=== PATIENT | male | born 1970 | race Caucasian/White ===

== ENCOUNTER 2019-04-14 18:46 | Emergency (ER) | payer SELFPAY ==
[~2019-04-14] VITALS: Ht 172.7 cm; Wt 70.3 kg
[2019-04-14] MEDS ORDERED: IV RINGERS SOLUTION,LACTATED 1,000 ML IV SCH ×2 (18:54→20:15)
--- NOTE | 2019-04-14 19:05 | ED.ADGEN ---
Past History Past Medical History: Seizure Adult General Chief Complaint Chief Complaint - Pt. PD referral for mental status change and intoxication.- Seen stumbling down [address]- Verbal responsive to yes and no questions, No pain complaints- Past Hx. per Paramedics for ETOH abuse HPI HPI Patient is a 48 year old male who presents with above hx and complaints of mental status change. Appears to have had a seizure- small bite corrine on tongue and urinated on himself. Patient appears post ictal. Patient had a strong smell of alcohol. Patient denies any trauma. Patient denies any head injury. Patient does answer questions with yes and no. Patient is somewhat discoordinated a poor historian. Patient does have findings consistent with sunburn. Patient will move all extremities on request. Patient is able to move himself from, to x-ray table in x-ray table, without problem. Patient denies other drug usage. He advised he only likes to drink alcohol. Patient does smoke. Review of Systems Review of Systems Constitutional: Denies fever or chills [] Eyes: Denies change in visual acuity, redness, or eye pain [] HENT: Denies nasal congestion or sore throat [] Respiratory: Denies cough or shortness of breath [] Cardiovascular: No additional information not addressed in HPI [] GI: Denies abdominal pain, nausea, vomiting, bloody stools or diarrhea [] : Denies dysuria or hematuria [] Musculoskeletal: Denies back pain or joint pain [] Integument: Denies rash or skin lesions []Sun burn Neurologic: Denies headache, focal weakness or sensory changes [] Endocrine: Denies polyuria or polydipsia [] All other systems were reviewed and found to be within normal limits, except as documented in this note. Family History Family History Not currently available Current Medications Current Medications Current Medications Medications (Trade) Dose Ordered Sig/Amy Start Time Stop Time Status Last Admin Dose Admin Aspirin (Children'S Aspirin) 81 mg 1X ONCE 04/14/19 19:15 04/14/19 19:16 DC 04/14/19 19:16 81 MG Enoxaparin Sodium (Lovenox 80mg Syringe) 80 mg BID 04/14/19 21:00 04/14/19 23:30 DC Folic Acid (FOLIC ACID SYRINGE for ER) 5 mg STK-MED ONCE 5/14/19 19:12 04/14/19 19:13 DC Iohexol (Omnipaque 350 Mg/ml) 100 ml 1X ONCE 04/14/19 20:45 04/14/19 20:46 DC Lactated Ringer's 1,000 ml @ 160 mls/hr Q6H15M 04/14/19 20:15 04/14/19 23:30 DC Lorazepam (Ativan) 2 mg 1X PRN PRN 04/14/19 20:15 04/14/19 23:30 DC Multivitamins/ Minerals 10 ml/ Folic Acid 1 mg/ Thiamine HCl 100 mg/Lactated Ringer's 1,011.2 ml @ 1,011.2 mls/hr DAILY 04/15/19 09:00 04/15/19 09:00 DC Ondansetron HCl (Zofran) 4 mg PRN Q4HRS PRN 04/14/19 20:15 04/14/19 23:30 DC Thiamine HCl (Thiamine Vial) 200 mg STK-MED ONCE 04/14/19 19:12 04/14/19 19:13 DC Allergies Allergies Allergies Coded Allergies Type Severity Reaction Last Updated Verified No Known Drug Allergies 04/14/19 No Physical Exam Physical Exam Constitutional: no acute distress, very intoxicated in appearance. [] HENT: Normocephalic, bite corrine on tongue, bilateral external ears normal, oropharynx moist, no oral exudates, nose normal. Sunburn to face Eyes: PERRLA, EOMI, conjunctiva normal, no discharge. [] Neck: Normal range of motion, no tenderness, supple, no stridor. [] Cardiovascular:Heart rate regular rhythm, no murmur [] Lungs & Thorax: Bilateral breath sounds equal apex with few scattered wheezes auscultation [] Abdomen: Bowel sounds normal, soft, no tenderness, no masses, no pulsatile masses. []Urinary incontinence Skin: Warm, dry, no erythema, no rash. [] Does have findings of bony points ecchymosis from old falls. Back: No tenderness, no CVA tenderness. [] Extremities: No tenderness, no cyanosis, no clubbing, ROM intact, no edema. [] Moves all extremities on request. Neurologic: Alert and oriented X 3, patient is ambulatory, has distal sensory fu nction, dis coordinated on finger to nose. [employer]s [employer] Footballs Reverser equal. DTRs +2 patella and brachial. Patient has somewhat wide gait. No cording in legs. Psychologic: Affect is up-to-date, judgement impaired,, mood normal. []Patient eventually sensorium improved. Was able to walk without dis coordination. Demanding discharge. Patient denies suicidal ideation. Patient denies any homicidal ideation. Patient denies any hallucinations. Patient denies previous surgeries or history or alcohol withdrawal seizures. Patient continued to refuse admission. Current Patient Data Lab Results Laboratory Tests Test 04/14/19 19:00 04/14/19 19:19 04/14/19 21:20 White Blood Count 8.8 x10^3/uL (4.0-11.0) Red Blood Count 4.32 x10^6/uL (4.30-5.70) Hemoglobin 14.2 g/dL (13.0-17.5) Hematocrit 42.7 % (39.0-53.0) Mean Corpuscular Volume 99 fL (79-100) Mean Corpuscular Hemoglobin 33 pg (25-35) Mean Corpuscular Hemoglobin Concent 33 g/dL (31-37) Red Cell Distribution Width 13.6 % (11.5-14.5) Platelet Count 273 x10^3/uL (140-400) Neutrophils (%) (Auto) 59 % (31-73) Lymphocytes (%) (Auto) 29 % (24-48) Monocytes (%) (Auto) 9 % (0-9) Eosinophils (%) (Auto) 2 % (0-3) Basophils (%) (Auto) 1 % (0-3) Neutrophils # (Auto) 5.1 x10^3uL (1.8-7.7) Lymphocytes # (Auto) 2.5 x10^3/uL (1.0-4.8) Monocytes # (Auto) 0.8 x10^3/uL (0.0-1.1) Eosinophils # (Auto) 0.2 x10^3/uL (0.0-0.7) Basophils # (Auto) 0.1 x10^3/uL (0.0-0.2) Erythrocyte Sedimentation Rate 22 (0-15) H Prothrombin Time 10.2 SEC (9.4-11.4) Prothrombin Time INR 1.0 (0.9-1.1) PTT 24 SEC (23-33) D-Dimer (Apurva) 0.94 mg/L (0.00-0.50) H Sodium Level 141 mmol/L (136-145) Potassium Level 3.8 mmol/L (3.5-5.1) Chloride Level 106 mmol/L (98-107) Carbon Dioxide Level 21 mmol/L (21-32) Anion Gap 14 (6-14) Blood Urea Nitrogen 10 mg/dL (8-26) Creatinine 1.3 mg/dL (0.7-1.3) Estimated GFR (Cockcroft-Gault) 58.4 Glucose Level 91 mg/dL (70-99) Calcium Level 8.9 mg/dL (8.5-10.1) Magnesium Level 2.1 mg/dL (1.8-2.4) Total Bilirubin 0.2 mg/dL (0.2-1.0) Direct Bilirubin 0.1 mg/dL (0.0-0.2) Aspartate Amino Transferase (AST) 35 U/L (15-37) Alanine Aminotransferase (ALT) 29 U/L (16-63) Alkaline Phosphatase 70 U/L (46-116) Creatine Kinase 78 U/L (39-308) Troponin I Quantitative < 0.017 ng/mL (0-0.055) [id number]-Type Natriuretic Peptide 27 pg/mL (0-124) Total Protein 7.8 g/dL (6.4-8.2) Albumin 3.5 g/dL (3.4-5.0) Lipase 174 U/L (73-393) Ethyl Alcohol Level 284 mg/dL (0-10) H 225 mg/dL (0-10) H Glucose (Fingerstick) 93 mg/dL (70-99) Urine Collection Type Unknown Urine Color Straw Urine Clarity Clear Urine pH 5.5 Urine Specific [place] <=1.005 Urine Protein Neg (NEG-TRACE) Urine Glucose (UA) Neg mg/dL (NEG) Urine Ketones (Stick) Neg mg/dL (NEG) Urine Blood Small (NEG) Urine Nitrite Neg (NEG) Urine Bilirubin Neg (NEG) Urine Urobilinogen Dipstick 0.2 mg/dL (0.2 mg/dL) Urine Leukocyte Esterase Neg (NEG) Urine RBC 0 /HPF (0-2) Urine WBC 0 /HPF (0-4) Urine Squamous Epithelial Cells Occ /LPF Urine Bacteria 0 /HPF (0-FEW) Urine Opiates Screen Neg (NEG) Urine Methadone Screen Neg (NEG) Urine Barbiturates Neg (NEG) Urine Phencyclidine Screen Neg (NEG) Urine Amphetamine/Methamphetamine Neg (NEG) Urine Benzodiazepines Screen Neg (NEG) Urine Cocaine Screen Neg (NEG) Urine Cannabinoids Screen Neg (NEG) Urine Ethyl Alcohol Pos (NEG) EKG EKG My interpretation of EKG shows a sinus rhythm at 81 bpm. Left axis. No findings acute STEMI of contralateral changes.[] Radiology/Procedures Radiology/Procedures My interpretation chest x-ray shows no acute cardiopulmonary findings. My interpretation of CT head shows atrophy. No shift, mass, edema, bleed, or fracture. See formal report when available. My interpretation CT of neck shows degenerative joint changes. But no obvious fracture dislocation. Possible vascular AV M at T-1 or T2? See formal report when available. . Patient refuses CT angio of chest.[] Course & Med Decision Making Course & Med Decision Making Pertinent Labs and Imaging studies reviewed. (See chart for details). Encourage patient to not drink to excess. Patient follow-up primary care. Patient consider alcohol rehabilitation. Pt. currently refusing referral. Pt. currently refusing admission. Pt. refusing CT chest. Pt. insistent on discharge in spite of risks. Seizure precautions given. . Begged patient to remain in hospital get adequate hydration. Monitor for further seizures. Pt. refuses admission and further evaluation. Pt. did pull out his IV and dress himself. Stated he would not be admitted or consider a rehab program. Pt. refused to complete CT chest. Recommend pt. to take a daily MV. Pt. encourage to return at any time. [] Final Impression Final Impression 1. Mental Status Change- 2.Suspect Seizure 3. ETOH Abuse 4. Tobacco Use 5. Elevated D-dimer 0.94[] 6. Hemangioma at T2- 2 centimeters Dragon Disclaimer Dragon Disclaimer This electronic medical record was generated, in whole or in part, using a voice recognition dictation system. Discharge Summary Visit Information Final Diagnosis Problems Medical Problems: (1) Alcohol abuse Status: Acute (2) Mental status alteration Status: Acute Brief Hospital Course Allergies Allergies Coded Allergies Type Severity Reaction Last Updated Verified No Known Drug Allergies 04/14/19 No Lab Results Laboratory Tests Test 04/14/19 19:00 04/14/19 19:19 04/14/19 21:20 White Blood Count 8.8 x10^3/uL (4.0-11.0) Red Blood Count 4.32 x10^6/uL (4.30-5.70) Hemoglobin 14.2 g/dL (13.0-17.5) Hematocrit 42.7 % (39.0-53.0) Mean Corpuscular Volume 99 fL (79-100) Mean Corpuscular Hemoglobin 33 pg (25-35) Mean Corpuscular Hemoglobin Concent 33 g/dL (31-37) Red Cell Distribution Width 13.6 % (11.5-14.5) Platelet Count 273 x10^3/uL (140-400) Neutrophils (%) (Auto) 59 % (31-73) Lymphocytes (%) (Auto) 29 % (24-48) Monocytes (%) (Auto) 9 % (0-9) Eosinophils (%) (Auto) 2 % (0-3) Basophils (%) (Auto) 1 % (0-3) Neutrophils # (Auto) 5.1 x10^3uL (1.8-7.7) Lymphocytes # (Auto) 2.5 x10^3/uL (1.0-4.8) Monocytes # (Auto) 0.8 x10^3/uL (0.0-1.1) Eosinophils # (Auto) 0.2 x10^3/uL (0.0-0.7) Basophils # (Auto) 0.1 x10^3/uL (0.0-0.2) Erythrocyte Sedimentation Rate 22 (0-15) Prothrombin Time 10.2 SEC (9.4-11.4) Prothromb Time International Ratio 1.0 (0.9-1.1) Activated Partial Thromboplast Time 24 SEC (23-33) D-Dimer (Apurva) 0.94 mg/L (0.00-0.50) Sodium Level 141 mmol/L (136-145) Potassium Level 3.8 mmol/L (3.5-5.1) Chloride Level 106 mmol/L (98-107) Carbon Dioxide Level 21 mmol/L (21-32) Anion Gap 14 (6-14) Blood Urea Nitrogen 10 mg/dL (8-26) Creatinine 1.3 mg/dL (0.7-1.3) Estimated GFR (Cockcroft-Gault) 58.4 Glucose Level 91 mg/dL (70-99) Calcium Level 8.9 mg/dL (8.5-10.1) Magnesium Level 2.1 mg/dL (1.8-2.4) Total Bilirubin 0.2 mg/dL (0.2-1.0) Direct Bilirubin 0.1 mg/dL (0.0-0.2) Aspartate Amino Transf (AST/SGOT) 35 U/L (15-37) Alanine Aminotransferase (ALT/SGPT) 29 U/L (16-63) Alkaline Phosphatase 70 U/L (46-116) Creatine Kinase 78 U/L (39-308) Troponin I Quantitative < 0.017 ng/mL (0-0.055) [id number]-Type Natriuretic Peptide 27 pg/mL (0-124) Total Protein 7.8 g/dL (6.4-8.2) Albumin 3.5 g/dL (3.4-5.0) Lipase 174 U/L (73-393) Ethyl Alcohol Level 284 mg/dL (0-10) 225 mg/dL (0-10) Glucose (Fingerstick) 93 mg/dL (70-99) Urine Collection Type Unknown Urine Color Straw Urine Clarity Clear Urine pH 5.5 Urine Specific [place] <=1.005 Urine Protein Neg (NEG-TRACE) Urine Glucose (UA) Neg mg/dL (NEG) Urine Ketones (Stick) Neg mg/dL (NEG) Urine Blood Small (NEG) Urine Nitrite Neg (NEG) Urine Bilirubin Neg (NEG) Urine Urobilinogen Dipstick 0.2 mg/dL (0.2 mg/dL) Urine Leukocyte Esterase Neg (NEG) Urine RBC 0 /HPF (0-2) Urine WBC 0 /HPF (0-4) Urine Squamous Epithelial Cells Occ /LPF Urine Bacteria 0 /HPF (0-FEW) Urine Opiates Screen Neg (NEG) Urine Methadone Screen Neg (NEG) Urine Barbiturates Neg (NEG) Urine Phencyclidine Screen Neg (NEG) Urine Amphetamine/Methamphetamine Neg (NEG) Urine Benzodiazepines Screen Neg (NEG) Urine Cocaine Screen Neg (NEG) Urine Cannabinoids Screen Neg (NEG) Urine Ethyl Alcohol Pos (NEG) Brief Hospital Course Mr. York is a 48 old male who presented with alcohol intoxication and suspect seizure activity. Pt. post ictal status cleared, and pt. demanded discharge. Discharge Information Condition at Discharge: Improved, Stable Disposition/Orders: D/C to Home Dischare Medications Current Medications Lactated Ringer's 1,000 ml @ 1,000 mls/hr Q1H IV Last administered on 04/14/19at 19:07; Admin Dose 1,000 MLS/HR; Start 04/14/19 at 18:54; Stop 04/14/19 at 19:53; Status DC Lorazepam (Ativan) 2 mg 1X ONCE IV Last administered on 04/14/19at 19:07; Admin Dose 2 MG; Start 04/14/19 at 19:15; Stop 04/14/19 at 19:16; Status DC Multivitamins/ Minerals 10 ml/ Folic Acid 1 mg/ Thiamine HCl 100 mg/Lactated Ringer's 1,011.2 ml @ 1,011.2 mls/hr 1X ONCE IV Last administered on 04/14/19at 19:38; Admin Dose 1,011.2 MLS/HR; Start 04/14/19 at 19:30; Stop at 20:29; Status DC Aspirin (Children'S Aspirin) 81 mg 1X ONCE PO Last administered on 04/14/19at 19:16; Admin Dose 81 MG; Start 04/14/19 at 19:15; Stop 04/14/19 at 19:16; Status DC Thiamine HCl (Thiamine Vial) 200 mg STK-MED ONCE IV ; Start 04/14/19 at 19:12; Stop 04/14/19 at 19:13; Status DC Folic Acid (FOLIC ACID SYRINGE for ER) 5 mg STK-MED ONCE IV ; Start 04/14/19 at 19:12; Stop 04/14/19 at 19:13; Status DC Enoxaparin Sodium (Lovenox 80mg Syringe) 80 mg 1X ONCE SQ ; Start 04/14/19 at 20:15; Stop 04/14/19 at 23:30; Status DC Ondansetron HCl (Zofran) 4 mg PRN Q4HRS PRN IV NAUSEA/VOMITING; Start 04/14/19 at 20:15; Stop 04/14/19 at 23:30; Status DC Multivitamins/ Minerals 10 ml/ Folic Acid 1 mg/ Thiamine HCl 100 mg/Lactated Ringer's 1,011.2 ml @ 1,011.2 mls/hr DAILY IV ; Start 04/15/19 at 09:00; Stop 04/15/19 at 09:00; Status DC Lactated Ringer's 1,000 ml @ 160 mls/hr Q6H15M IV ; Start 04/14/19 at 20:15; Stop 04/14/19 at 23:30; Status DC Enoxaparin Sodium (Lovenox 80mg Syringe) 80 mg BID SQ ; Start 04/14/19 at 21:00; Stop 04/14/19 at 23:30; Status DC Lorazepam (Ativan) 2 mg 1X PRN PRN IV SEIZURE; Start 04/14/19 at 20:15; Stop 04/14/19 at 23:30; Status DC Iohexol (Omnipaque 350 Mg/ml) 100 ml 1X ONCE IV ; Start 04/14/19 at 20:45; Stop 04/14/19 at 20:46; Status DC Dragon Disclaimer This chart was dictated in whole or in part using Voice Recognition software in a busy, high-work load, and often noisy Emergency Department environment. It may contain unintended and wholly unrecognized errors or omissions. DIXON SINGH MD April 14, 2019 19:05
--- NOTE | 2019-04-14 19:07 | RAD ---
CT scan of the head without contrast 04/14/2019 Clinical History: Patient found unresponsive. Code stroke. Technique: Unenhanced, contiguous, 5 mm axial sections were obtained through the head. One or more of the following individualized dose reduction techniques were utilized for this study: 1. Automated exposure control. 2. Adjustment of the mA and/or kV according to patient size. 3. Use of iterative reconstruction technique. Findings: No previous imaging studies are available for comparison. There is generalized parenchymal atrophy. Areas of decreased attenuation are seen within the periventricular and subcortical white matter of both cerebral hemispheres consistent with areas of small vessel ischemic disease. No acute parenchymal abnormality is seen. No extra-axial fluid collection is noted. No skull fracture is seen. Impression: No acute intracranial abnormality is seen. This result was called to Dr. Singh at [address] scan of the cervical spine without contrast 04/14/2019 Clinical history: Patient found unresponsive. Neck injury. Technique: Unenhanced, contiguous, 0.625 mm axial sections were obtained through the cervical spine. Axial, coronal and sagittal reconstructed images were obtained. One or more of the following individualized dose reduction techniques were utilized for this study: 1. Automated exposure control. 2. Adjustment of the mA and/or kV according to patient size. 3. Use of iterative reconstruction technique. Findings: Sagittal and coronal reconstructed images demonstrate minimal lateral curvature of the cervical spine, convex to the left. No fracture or subluxation of the cervical vertebrae is seen. Degenerative changes are seen involving the uncovertebral and facet joints throughout the cervical disc spaces. Incidental note is made of a 2 cm hemangioma involving the T2 vertebral body. Impression: No fracture or subluxation of the cervical vertebra is identified. Electronically signed by: Alex Goodwin MD (04/14/2019 7:04 PM) [facility]
[2019-04-14] MEDS ORDERED: FOLIC ACID 5 MG/ML SYRINGE for ER IV ONE (19:12)
[2019-04-14] MEDS ORDERED: THIAMINE 200 MG/2 ML VIAL. IV ONE (19:12)
[2019-04-14] MEDS ORDERED: ASPIRIN 81 MG TAB.CHEW PO ONE (19:15)
--- NOTE | 2019-04-14 19:16 | EKG ---
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
[2019-04-14 19:29] LABS: BASO # 0.1 x10^3/uL (0.0-0.2); BASO % 1 % (0-3); EOS # 0.2 x10^3/uL (0.0-0.7); EOS % 2 % (0-3); HEMATOCRIT 42.7 % (39.0-53.0); HEMOGLOBIN 14.2 g/dL (13.0-17.5); LYMPH # 2.5 x10^3/uL (1.0-4.8); LYMPH % 29 % (24-48); MEAN CORPUSCULAR HEMOGLOBIN 33 pg (25-35); MEAN CORPUSCULAR HGB CONC 33 g/dL (31-37); MEAN CORPUSCULAR VOLUME 99 fL (79-100); MONO # 0.8 x10^3/uL (0.0-1.1); MONO % 9 % (0-9); NEUT # 5.1 x10^3uL (1.8-7.7); NEUT % 59 % (31-73); PLATELET COUNT 273 x10^3/uL (140-400); RED BLOOD COUNT 4.32 x10^6/uL (4.30-5.70); RED CELL DISTRIBUTION WIDTH 13.6 % (11.5-14.5); WHITE BLOOD COUNT 8.8 x10^3/uL (4.0-11.0)
[2019-04-14] MEDS ORDERED: MVI, ADULT NO.4 WITH VIT K 10 ML, FOLIC ACID SYRINGE for ER 1 MG, THIAMINE INJ 100 MG i... IV ONE ×4 (19:30)
[2019-04-14 19:43] LABS: ALBUMIN 3.5 g/dL (3.4-5.0); CALCIUM 8.9 mg/dL (8.5-10.1); CREATININE 1.3 mg/dL (0.7-1.3); DIRECT BILIRUBIN 0.1 mg/dL (0.0-0.2); GFR 58.4; MAGNESIUM 2.1 mg/dL (1.8-2.4); POTASSIUM 3.8 mmol/L (3.5-5.1); TOTAL BILIRUBIN 0.2 mg/dL (0.2-1.0); TOTAL PROTEIN 7.8 g/dL (6.4-8.2)
[2019-04-14] MEDS ORDERED: ENOXAPARIN ** NOTE DOSE ** SYRINGE SQ ONE (20:15)
[2019-04-14] MEDS ORDERED: ONDANSETRON PF 4 MG/2 ML VIAL. IV PRN (20:15)
[2019-04-14 20:27] LABS: SEDIMENTATION RATE 22 (0-15)
[2019-04-14] MEDS ORDERED: IOHEXOL 350 MG/ML 100 ML VIAL. IV ONE (20:45)
[2019-04-14] MEDS ORDERED: ENOXAPARIN ** NOTE DOSE ** SYRINGE SQ SCH (21:00)
[2019-04-14 21:07] VITALS: BP 128/87
[2019-04-14 21:42] LABS: BACTERIA,URINE 0 /HPF (0-FEW); BILIRUBIN,URINE NEG (NEG); CLARITY,URINE CLEAR; COLOR,URINE STRAW; GLUCOSE,URINE NEG (NEG); NITRITE,URINE NEG (NEG); RBC,URINE 0 /HPF (0-2); SQUAMOUS EPITHELIAL CELL,UR OCC /LPF; UROBILINOGEN,URINE 0.2 mg/dL (0.2 mg/dL); WBC,URINE 0 /HPF (0-4)
[2019-04-14 21:56] LABS: AMPHETAMINE/METHAMPHETAMINE NEG (NEG); BARBITURATES NEG (NEG)
[2019-04-14 21:57] LABS: BENZODIAZEPINES NEG (NEG); CANNABINOIDS NEG (NEG); COCAINE NEG (NEG); METHADONE NEG (NEG); OPIATES NEG (NEG); PHENCYCLIDINE NEG (NEG)
--- NOTE | 2019-04-15 00:19 | RAD ---
AP portable chest radiograph 04/14/2019 Clinical History: Patient found unresponsive. An AP erect portable digital radiograph of the chest was obtained. No previous studies are available for comparison. The cardiac silhouette is normal in size. The thoracic aorta is mildly tortuous. No acute pulmonary infiltrate is seen. No pleural effusion or pneumothorax is noted. The osseous structures are grossly intact. IMPRESSION: No acute abnormality is seen. Electronically signed by: Alex Goodwin MD (04/15/2019 12:16 AM) [facility]
[2019-04-15] MEDS ORDERED: MVI, ADULT NO.4 WITH VIT K 10 ML, FOLIC ACID SYRINGE for ER 1 MG, THIAMINE INJ 100 MG i... IV SCH ×4 (09:00)
== END 2019-04-14 22:00 | disposition home or self-care (01) ==
LOC: ER 19:43
DX: R41.82 Altered mental status, unspecified (principal); R79.1 Abnormal coagulation profile; D18.09 Hemangioma of other sites; F10.10 Alcohol abuse, uncomplicated; L55.9 Sunburn, unspecified; Z72.0 Tobacco use; Y90.8 Blood alcohol level of 240 mg/100 ml or more
CPT/HCPCS: 36415; 70450; 71045; 72125; 80048; 80076; 80307; 81001; 82550; 82947; 83690; 83735; 83880; 84443; 84484; 85025; 85379; 85610; 85651; 85730; 93005; 96361; 96365; 96375; 99285; G0480; J2060; J7120